=== PATIENT | female | born 1945 | race Caucasian/White ===

== ENCOUNTER → 2018-09-02 10:59 | Outpatient (CLI) | payer MEDICARE, OTHER, SELFPAY ==
--- NOTE | 2018-09-02 11:02 | DI.MG.S_ITS ---
BILATERAL DIGITAL SCREENING MAMMOGRAM 3D/2D WITH CAD: 09/02/2018 CLINICAL: Routine screening. Comparison is made to exams dated: 08/13/2015 mammogram and 10/28/2011 mammogram - [facility]. There are scattered fibroglandular elements in both breasts. Current study was also evaluated with a Computer Aided Detection (CAD) system. There is an oval equal density asymmetry with an indistinct margin in the left breast posterior depth superior region seen on the mediolateral oblique view only. No other significant masses, calcifications, or other findings are seen in either breast. IMPRESSION: INCOMPLETE: NEEDS ADDITIONAL IMAGING EVALUATION The oval equal density asymmetry in the left breast is indeterminate. Mediolateral, exaggerated CC, and spot compression views as well as additional views with possible ultrasound are recommended. This exam was interpreted at Station ID: [id number]. NOTE: For mammograms, a report in lay terms will be sent to the patient. Approximately 15% of breast malignancies will not be visualized mammographically. In the management of a palpable breast mass, a negative mammogram must not discourage biopsy of a clinically suspicious lesion. Electronically Signed By: Jake salas/ab:09/02/2018 12:03:27 letter sent: Additional Imaging Needed ACR BI-RADS Category 0: Incomplete [id number]
== END ==
PROVIDERS: PCP Family Medicine; Visit Provider Family Medicine
DX: Z12.31 Encounter for screening mammogram for malignant neoplasm of breast (principal)
CPT/HCPCS: 77063; 77067

== ENCOUNTER → 2018-10-05 12:03 | Outpatient (CLI) | payer MEDICARE, OTHER, SELFPAY ==
--- NOTE | 2018-10-05 12:06 | DI.MG.S_ITS ---
UNILATERAL LEFT DIGITAL DIAGNOSTIC MAMMOGRAM 3D/2D WITH ADDITIONAL VIEWS: 10/05/2018 CLINICAL: Additional evaluation requested from prior study. Comparison is made to exams dated: 09/02/2018 mammogram - [facility], 08/13/2015 mammogram, and 10/28/2011 mammogram - [facility]. There are scattered fibroglandular elements in left breast. Previously noted oval equal density asymmetry with an indistinct margin in the left breast posterior depth superior region seen on the mediolateral oblique view only on comparison screening mammogram resolves with additional views and likely represented superimposition of benign anatomic tissues. There are benign vascular calcifications. No other significant masses, calcifications, or other findings are seen in the breast. IMPRESSION: INCOMPLETE: NEEDS ADDITIONAL IMAGING EVALUATION No mammographic evidence of malignancy in the imaged left breast. A targeted ultrasound is recommended and will be performed immediately following this exam. This exam was interpreted at Station ID: [id number]. NOTE: For mammograms, a report in lay terms will be sent to the patient. Approximately 15% of breast malignancies will not be visualized mammographically. In the management of a palpable breast mass, a negative mammogram must not discourage biopsy of a clinically suspicious lesion. Electronically Signed By: Cisco Bravo M.D. ecl/:10/05/2018 13:20:45 letter sent: Additional Imaging Needed ACR BI-RADS Category 0: Incomplete [id number]
--- NOTE | 2018-10-05 12:06 | DI.US.S_ITS ---
LIMITED ULTRASOUND OF LEFT BREAST: 10/05/2018 CLINICAL: Follow up from addtional views. Comparison is made to exams dated: 10/05/2018 mammogram, 09/02/2018 mammogram - [facility], and 08/13/2015 mammogram - [facility]. Real-time and Doppler ultrasound of the left breast upper aspect were performed. Rodney scale images of the real-time examination were reviewed. Targeted ultrasound was performed of the upper left breast. No underlying breast mass or abnormality is identified. There is no ultrasound correlate for the previously noted oval equal density asymmetry with an indistinct margin in the left breast posterior depth superior region seen on the mediolateral oblique view only on comparison screening mammogram, which subsequently resolved with additional diagnostic views performed immediately prior to this exam. IMPRESSION: NEGATIVE There is no sonographic evidence of malignancy in the imaged upper left breast. Return to annual screening mammography is recommended, next due in August 2019. The patient is advised to monitor her breasts and to return sooner for re-evaluation should she feel anything grow or change. This exam was interpreted at Station ID: [id number]. Electronically Signed By: Cisco Bravo M.D. ecl/:10/05/2018 15:22:38 letter sent: Normal Exam Ultrasound BI-RADS: 1 Negative
== END ==
PROVIDERS: PCP Family Medicine; Visit Provider Family Medicine
DX: R92.8 Other abnormal and inconclusive findings on diagnostic imaging of breast (principal)
CPT/HCPCS: 76642; 77065; G0279

== ENCOUNTER → 2019-03-04 08:54 | Outpatient (CLI) | payer MEDICARE, OTHER, SELFPAY ==
[2019-03-04 09:49] LABS: Add Manual Diff / Slide Review NO; Basophils Absolute Auto 0 /uL (0-100); Basophils Percent Auto 0.2 % (0-2); Eosinophils Absolute Auto 100 /uL (0-450); Eosinophils Percent Auto 1.5 % (2-4); Hematocrit 38.3 % (36-46); Hemoglobin 12.8 g/dL (12.0-16.0); Lymphocytes Absolute Auto 2600 /uL (1100-4500); Lymphocytes Percent Auto 41.8 % (25-40); Mean Corpuscular HGB Conc 33.5 % (30-36); Mean Corpuscular Hemoglobin 30.3 PG (26-34); Mean Corpuscular Volume 90.4 fL (80-100); Monocytes Absolute Auto 700 /uL (0-900); Monocytes Percent Auto 12.3 % (3-14); Neutrophils Absolute Auto 2700 /uL (1500-7000); Neutrophils Percent Auto 44.2 % (50-75); Platelet Count 248 X10^3/uL (150-400); Red Blood Cell Count 4.24 X10^6/uL (4.0-5.2); White Blood Cell Count 6.1 X10^3/uL (4.5-11.0)
[2019-03-04 10:32] LABS: Cholesterol 211 mg/dL (140-199); HDL Cholesterol 46 mg/dL (40-60); LDL Cholesterol Calculated 134 mg/dL (<100); Triglycerides 157 mg/dL (35-150)
[2019-03-04 10:58] LABS: Thyroid Stimulating Hormone 2.12 uIU/mL (0.47-4.68)
[2019-03-07 10:36] LABS: Alanine Aminotransferase 24 IU/L (9-52); Albumin 4.5 g/dL (3.5-5.0); Albumin Globulin Ratio 1.5 (1.0-2.8); Alkaline Phosphatase 50 U/L (38-126); Aspartate Aminotransferase 19 IU/L (14-36); BUN Creatinine Ratio 22.9 (6-22); Bilirubin Total 0.4 mg/dL (0.2-1.3); Blood Urea Nitrogen 16 mg/dL (7-17); Calcium 9.2 mg/dL (8.4-10.2); Carbon Dioxide 27 mmol/L (22-32); Chloride 103 mmol/L (98-107); Estimated Glomerular Filt Rate > 60.0 mL/min (>60); Glucose 101 mg/dL (80-110); HEMOLYSIS < 15 (0-50); Potassium 4.9 mmol/L (3.4-5.1); Sodium 140 mmol/L (137-145); Total Protein 7.5 g/dL (6.3-8.2)
== END ==
PROVIDERS: PCP Family Medicine; Visit Provider Family Medicine
DX: I10 Essential (primary) hypertension (principal); Z13.29 Encounter for screening for other suspected endocrine disorder; Z13.220 Encounter for screening for lipoid disorders; Z51.81 Encounter for therapeutic drug level monitoring
CPT/HCPCS: 36415; 80053; 80061; 84443; 85025; 85027

== ENCOUNTER → 2019-03-15 08:47 | Outpatient (CLI) | payer MEDICARE, OTHER, SELFPAY ==
--- NOTE | 2019-03-15 08:49 | DI.ECHO.S_ITS ---
[facility] [place] [facility]---------+ [facility] +---------+ : : [address] : [address] : : : : [id number] : : : : Phone: [phone]---------+ Echocardiogram Report + + :Name: JANKI BARROSO Study Date: 03/15/2019 Height: 61 in : :[facility] Exam Location: [facility] Weight: 156 lb : : Gender: Female BSA: 1.7 m2 : :: 1945 Age: 73 yrs BP: 140/80 mmHg: :Reason For Study: Murmur : :Ordering Physician: Hilaria Jansen Performed By: Carly Page : + + Interpretation Summary Mildp proximal septal thickening is noted. The ejection fraction is estimated to be 60-65%. There is mild aortic stenosis. Also suggested by echo is trivial flow acceleration in the LVOT due to the sigmoid septum. This doesn't appear to be of hemodynamic significance. Upon follow up echos, a Valsalva maneuver with focus on LVOT is recommended. Otherwise unremarkable echo. Procedure: A two-dimensional transthoracic echocardiogram with color flow and Doppler was performed. The study quality was technically adequate. There is no prior echocardiogram noted for this patient. The patient was in normal sinus rhythm during the exam. The patient had frequent PVCs during the exam. Left Ventricle: The left ventricle is normal in size, wall thickness, and systolic function without any focal wall motion abnormalities. Proximal septal thickening is noted. The ejection fraction is estimated to be 60-65%. There are no obvious focal wall motion abnormalities noted but poor endocardial definition reduces the sensitivity for the detection of such. Diastolic parameters suggest a relaxation abnormality of the left ventricle, consistent with probable normal filling pressures. Right Ventricle: The right ventricle is normal in size and function. Atria: The left atrium is mildly dilated. Right atrial size is normal. There is no Doppler evidence for an interatrial shunt. Mitral Valve: The mitral valve is normal in structure and function. There is mild mitral annular calcification. The mitral valve leaflets appear mildly thickened, but open well. There is trace mitral regurgitation. Aortic Valve: The aortic valve is trileaflet. The aortic valve is mildly calcified. Leaflet mobility is mildly reduced. The peak aortic velocity is 2.3 m/sec. The calculated aortic valve area is 1.5 cm2. The aortic valve area is 1.4 centimeters squared by planimetry. The aortic valve mean gradient is 12.3 mmHg. There is trace aortic regurgitation. Tricuspid Valve: The tricuspid valve is normal in structure and function. There is trace tricuspid regurgitation. Pulmonary artery pressures cannot be estimated because of the lack of a measurable TR jet velocity but the IVC suggests a CVP of around 3 mmHg. Pulmonic Valve: The pulmonic valve is not well visualized. There is trace pulmonic regurgitation. Great Vessels: The aortic root is normal size. The ascending aorta is normal in size. The aortic arch is normal in size. The pulmonary artery is not well visualized, but is probably normal size. The IVC is of normal diameter and collapses greater than 50% with a sniff. This suggests a low right atrial pressure of 3 mm Hg. Pericardium/ Pleura There is no pericardial effusion. There is no pleural effusion. MMode/2D Measurements & Calculations LVIDd: 4.4 cm LVOT diam: 2.4 cm LVIDs: 2.8 cm Ao root diam: 3.2 cm FS: 37.0 % asc Aorta Diam: 3.1 cm EPSS: 0.55 cm Ao Arch Diam (Prox Trans): 2.8 cm IVSd: 0.81 cm LVPWd: 0.72 cm LV craven. diameter/BSA (cm/m^2): 2.6 LV sys. diameter/BSA (cm/m^2): 1.6 LA A2 area: 21.6 cm2 RA long axis: 4.4 cm LA A4 area: 20.5 cm2 RA area: 13.6 cm2 LA length (vol): 5.0 cm RA vol: 35.7 ml LA vol: 75.2 ml RA : 21.0 ml/m2 LA vol index: 44.2 ml/m2 IVC diam: 1.9 cm RVD1 (basal): 3.1 cm TAPSE: 1.7 cm Doppler Measurements & Calculations Ao V2 max: 232.9 cm/sec LVOT Max Shubham: 85.7 cm/sec Ao V2 mean: 168.6 cm/sec LV V1 max P.9 mmHg Ao max P.7 mmHg LV V1 VTI: 16.8 cm Ao mean P.3 mmHg MATTHEW(I,D): 1.5 cm2 Ao V2 VTI: 50.5 cm MATTHEW(V,D): 1.6 cm2 sev ratio: 0.33 MATTHEW indexed to BSA (cm^2/m^2): 0.86 MV E max shubham: 97.5 cm/sec TR max shubham: 204.7 cm/sec MV A max shubham: 119.5 cm/sec TR max P.8 mmHg MV E/A: 0.82 PA V2 max: 67.7 cm/sec Med Peak E' Shubham: 6.6 cm/sec PA V2 mean: 51.9 cm/sec E/E' med: 14.7 PA mean P.1 mmHg Lat Peak E' Shubham: 11.5 cm/sec PA Accel Time: 0.11 sec E/E' lat: 8.5 E/e' average: 11.6 MV dec time: 0.18 sec MV P1/2t: 56.3 msec MV P1/2t max shubham: 96.5 cm/sec SV(LVOT): 74.2 ml MVA(P1/2t): 3.9 cm2 Electronically signed by: Stuart Chaparro M.D. on Reading Physician:03/15/2019 11:13 PM
== END ==
PROVIDERS: PCP Family Medicine; Visit Provider Family Medicine
DX: I35.0 Nonrheumatic aortic (valve) stenosis (principal); R01.1 Cardiac murmur, unspecified
CPT/HCPCS: 93306

== ENCOUNTER → 2019-11-09 13:05 | Outpatient (CLI) | payer MEDICARE, OTHER, SELFPAY | PROVIDERS: PCP Family Medicine; Visit Provider Student in an Organized Health Care Education/Training Program | DX: Z13.820 Encounter for screening for osteoporosis (principal); Z78.0 Asymptomatic menopausal state; Z91.89 Other specified personal risk factors, not elsewhere classified | CPT/HCPCS: 77080; 77081 ==